=== PATIENT | male | born 1955 | race Asian ===

== ENCOUNTER 2017-05-27 10:04 | Inpatient (IN) | payer OTHER ==
[~2017-05-27 10:04] MED LIST: ASPIRIN COATED 81 MG TABLET.EC PO ONE
--- NOTE | 2017-05-27 10:17 | PDOC ---
Attending Attestation - Medical Decision Making 05/27/17 11:36 Dr. Hargrove, neurologist, was paged via phone answering service requesting a call back for doctor to doctor consult. 05/27/17 12:04 Dr. Hargrove returned the call and the patient's case was discussed. 05/27/17 12:05 Dr. Xavier Lee was paged via phone answering service requesting a call back for doctor to doctor consult. 05/27/17 12:30 Dr. Xavier Lee was called a 2nd time via phone answering service and the patient's case was discussed. He requests admission to Dr. Haq 05/27/17 12:33 Dr. Haq was paged via phone answering service requesting a call back for doctor to doctor consult regarding patient admission. 05/27/17 12:35 Dr. Haq returned the call and the patient's case was discussed. Dr. Haq accepts this patient's admission. <Brinda Asif - Last Filed: 05/27/17 12:35> - Resident Resident Name: Boaz Gardner - ED Attending Attestation I have performed the following: I have examined & evaluated the patient, The case was reviewed & discussed with the resident, I agree w/resident's findings & plan, Exceptions are as noted - HPI HPI: 05/27/17 10:17 61-year-old male with a history of untreated hypertension and active smoking presents with right upper and lower extremity weakness since 1 AM last night. Daughter also notes he was having difficulty signing the ambulance paperwork and that he has some slurred speech. He has never had similar symptoms in the past. Denies any headaches. Reports - Physicial Exam PE: 05/27/17 10:17 GENERAL: Awake, alert, and fully oriented, in no acute distress HEAD: No signs of trauma EYES: PERRLA, EOMI, sclera anicteric, conjunctiva clear ENT: Auricles normal inspection, hearing grossly normal, nares patent, oropharynx clear without exudates. Moist mucosa NECK: Normal ROM, supple, no lymphadenopathy, JVD, or masses LUNGS: Breath sounds equal, clear to auscultation bilaterally. No wheezes, and no crackles HEART: Regular rate and rhythm, normal S1 and S2, no murmurs, rubs or gallops ABDOMEN: Soft, nontender, normoactive bowel sounds. No guarding, no rebound. No masses EXTREMITIES: Normal range of motion, no edema. No clubbing or cyanosis. No cords, erythema, or tenderness NEUROLOGICAL: slightly slurred speech, cranial nerves intact, +R sided pronator drift, 5/5 strength in all 4 extremities, normal sensation to light touch in all 4 extremities, normal cerebellar exam, normal reflexes and tone, visual jack full, gait deferred SKIN: Warm, Dry, normal turgor, no rashes or lesions noted. - Medical Decision Making 05/27/17 10:58 61-year-old male with a history of hypertension and smoking presents with right- sided weakness associated with slurred speech. Exam with slurred speech and right-sided pronator drift. Patient also reports difficulty walking earlier today due to right lower extremity weakness which he says has improved. NIH stroke scale of 2. Patient is out of the stroke window with last known normal at 1 AM last night. Likely CVA - ischemic or hemorrhagic versus TIA. -labs -CTH -MRI if CT negative -neuro c/s -admit 05/27/17 11:28 CTH negative for acute stroke. Aspirin and lipitor ordered, neuro c/s, MRI triple study ordered as well. Family made aware of findings and plan. 05/27/17 11:[address] Hargrove (neuro) who will see pt. Carotid doppler ordered. Dr. Lee paged for admission, awaiting call back. 05/27/17 12:[address] Haq <Mervin Kohler - Last Filed: 05/27/17 12:56>
[2017-05-27] MEDS ORDERED: SODIUM CHLORIDE 1,000 ML IV SCH (10:30)
[2017-05-27 10:37] LABS: BASOPHIL 0.5 % (0-2.0); EOSINOPHIL 4.1 % (0-4.5); MCH 29.1 pg (25.7-33.7); MCHC 32.8 g/dl (32.0-35.9); MEAN CELL VOLUME 88.7 fl (80-96); NEUTROPHILS 50.7 % (42.8-82.8); PLATELET COUNT 159 K/MM3 (134-434); RDW 13.6 % (11.9-15.9); WHITE BLOOD COUNT 7.2 K/mm3 (4.0-10.0)
--- NOTE | 2017-05-27 10:44 | PDOC ---
History of Present Illness - General Chief Complaint: CVA/TIA Stated Complaint: RT SIDE NUMBNESS Time Seen by Provider: 05/27/17 10:16 History Source: Patient, Family Exam Limitations: No Limitations - History of Present Illness Initial Comments: 05/27/17 10:35 The patient is a 61M with untreated HTN and tobacco abuse who presents with R upper and lower extremity weakness. The weakness and tingling started at 1am today. He was also complaining of dizziness and an unsteady gait. The dizziness is described as the room spinning. He felt so weak this morning that he was unable to walk to the bathroom and needed assistance. The patient does not take any of his BP meds. NIH Stroke Scale - Last Known Well Date/Time & Onset Date Last Known Well: 05/27/17 Time Last Known Well: 01:00 - Initial Evaluation Level of consciousness: Alert Ask patient the month and their age: Answers both correctly Ask patient to open & close eyes; make fist and let go: Obeys both correctly Best gaze (horizontal eye movement): Normal Visual field testing: No visual field loss Facial paresis (Show teeth/raise eyebrows/close eyes tight): Normal symmetrical movement Motor Function: Left Arm: Normal Motor Function: Right Arm: Drift Motor Function: Left Leg: Normal (extends leg 30 degrees for 5 seconds without drift) Motor Function: Right Leg: Normal (extends leg 30 degrees for 5 seconds without drift) Limb Ataxia: No ataxia Sensory(Use pinprick test arms,legs,trunk,face/side to side): Normal Best language (Describe picture, name items, read sentences): No Aphasia Dysarthria (read several words): Mild to moderate slurring of words Extinction and Inattention: No abnormality - Total Score NIH Stroke Scale Score: 2 Past History - Past Medical History Allergies/Adverse Reactions: Allergies Allergy/AdvReac Type Severity Reaction Status Date / Time No Known Allergies Allergy Verified 05/27/17 10:12 Home Medications: Ambulatory Orders Ibuprofen [Motrin -] 800 mg PO TID #30 tablet 06/16/15 HTN: Yes (NON COMPLIANT WITH MEDS.) - Surgical History Abdominal Surgery: Yes (HERNIA) - Psycho/Social/Smoking Cessation Hx Anxiety: No Suicidal Ideation: No Smoking History: Current every day smoker Have you smoked in the past 12 months: Yes Number of Cigarettes Smoked Daily: 20 Information on smoking cessation initiated: Yes 'Breaking Loose' booklet given: 05/27/17 Hx Alcohol Use: Yes (WEEKLY) Drug/Substance Use Hx: No Substance Use Type: None Review of Systems - Review of Systems Able to Perform ROS?: Yes Is the patient limited Kyrgyz proficient: No Constitutional: No: Chills, Fever HEENTM: Yes: Blurred Vision (secondary to irritant sprayed in eye) Respiratory: No: Cough, Shortness of Breath Cardiac (ROS): No: Chest Pain ABD/GI: No: Nausea, Vomiting Neurological: Yes: Tingling, Weakness. No: Headache, Numbness *Physical Exam - Vital Signs Last Vital Signs Temp Pulse Resp BP Pulse Ox 97.8 F 66 20 202/106 98 05/27/17 10:09 05/27/17 10:09 05/27/17 10:09 05/27/17 10:09 05/27/17 10:09 - Physical Exam General Appearance: Yes: Nourished, Appropriately Dressed. No: Apparent Distress, Moderate Distress HEENT: positive: Normal Voice, Hearing Grossly Normal Respiratory/Chest: positive: Lungs Clear, Normal Breath Sounds. negative: Chest Tender, Respiratory Distress, Accessory Muscle Use Cardiovascular: positive: Regular Rhythm, Regular Rate, S1, S2. negative: Diastolic Murmur, Systolic Murmur Gastrointestinal/Abdominal: positive: Flat. negative: Tender, Protuberent, Distended, Guarding, Rebound, Tenderness Extremity: negative: Coldness, Swelling, Calf Tenderness Integumentary: positive: Dry, Warm. negative: Cold, Clammy, Diaphoresis Neurologic: positive: winder hand II-XII NML intact, Fully Oriented, Alert, Normal Mood/ Affect, Normal Response, Motor Strength 5/5, Responsive, Finger to Nose (intact) , Other (Speech mildly slurly). negative: Abnormal Cranial NS, Respond to painful stimul, EOM Palsy, Facial Droop, Numbness, Sensory Deficit, Confused, Disoriented, Depressed Affect ED Treatment Course - LABORATORY CBC & Chemistry Diagram: 05/27/17 10:29 05/27/17 10:29 Medical Decision Making - Medical Decision Making 05/27/17 10:56 The patient is a 61M with a PMH of untreated HTN and smoking who presents with a questionable stroke/CVA. The patient is outside the treatment window for TPA, but imaging and labs have been ordered. The patient is hypertensive 194/106. 05/27/17 12:[address] Haq and he agreed for admission for CVA vs TIA. He wants consults for Dr. Houser and Beena for cardio and neuro. Orders have been placed. *DC/Admit/Observation/Transfer Diagnosis at time of Disposition: Cerebrovascular accident (CVA) Qualifiers: CVA mechanism: unspecified Qualified Code(s): I63.9 - Cerebral infarction, unspecified - Discharge Dispostion Condition at time of disposition: Stable Admit: Yes - Referrals Referrals: Xavier Lee [Primary Care Provider] -
[2017-05-27 10:58] LABS: ALBUMIN 3.9 g/dl (3.4-5.0); ANION GAP 6 (8-16); CHOLESTEROL 192 mg/dL (50-200); CO2 27 mmol/L (21-32); CREATININE 0.8 mg/dL (0.7-1.3); GLUCOSE,RANDOM 129 mg/dL (74-106); LDL CHOLESTEROL (ONLY SJRH) 117 mg/dL (5-100); SGOT/AST 19 U/L (15-37); SGPT/ALT 22 U/L (12-78); TOT PROT 7.4 g/dl (6.4-8.2)
[2017-05-27 10:59] LABS: ALK PHOS 82 U/L (45-117); CPK 179 IU/L (39-308); TROPONIN I < 0.02 ng/ml (0.00-0.05)
[2017-05-27 11:11] LABS: INR 0.99 (0.82-1.09); PROTHROMBIN TIME (PATIENT) 10.9 SEC (9.98-11.88)
[2017-05-27 11:13] LABS: ACTIVATED PTT 32.8 SECONDS (26.9-34.4)
[2017-05-27] MEDS ORDERED: ASPIRIN 325 MG ENTERIC COATED TABLET (FP) ONE (11:39)
[2017-05-27] MEDS ORDERED: ATORVASTATIN CA 80 MG TABLET (FP) PO ONE (12:02)
--- NOTE | 2017-05-27 13:21 | CONSULT ---
Consult - text type - Consultation Consultation Note: Neurology 61-year-old male with a history of untreated hypertension and active smoking presents with right upper and lower extremity weakness since 1 AM night prior to admission. Reportedly, his daughter noted he was having difficulty signing the ambulance paperwork and that he has some slurred speech. He has never had similar symptoms in the past. Was brought to ER and I spoke to attending, CT head done and negative, recommended ASA 325mg, Aspirin niave at home. Statin started Not in TPA window and therefore not a candidate for thrombolysis. CD completed and no evidence of high grade stenosis. Symptoms reportedly episodic and could TIA if re-circulation with effective collaterals occur. Past History - Past Medical History Allergies/Adverse Reactions: Allergies Allergy/AdvReac Type Severity Reaction Status Date / Time No Known Allergies Allergy Verified 05/27/17 10:12 Home Medications: Ambulatory Orders Ibuprofen [Motrin -] 800 mg PO TID #30 tablet 06/16/15 HTN: Yes (NON COMPLIANT WITH MEDS.) - Surgical History Abdominal Surgery: Yes (HERNIA) - Psycho/Social/Smoking Cessation Hx Anxiety: No Suicidal Ideation: No Smoking History: Current every day smoker Have you smoked in the past 12 months: Yes Number of Cigarettes Smoked Daily: 20 Information on smoking cessation initiated: Yes 'Breaking Loose' booklet given: 05/27/17 Hx Alcohol Use: Yes (WEEKLY) Drug/Substance Use Hx: No Substance Use Type: None Review of Systems - Review of Systems Able to Perform ROS?: Yes Is the patient limited Trinidadian proficient: No Constitutional: No: Chills, Fever HEENTM: Yes: Blurred Vision (secondary to irritant sprayed in eye) Respiratory: No: Cough, Shortness of Breath Cardiac (ROS): No: Chest Pain ABD/GI: No: Nausea, Vomiting Neurological: Yes: Tingling, Weakness. No: Headache, Numbness Active Medications Sodium Chloride (Normal Saline -) 1,000 mls @ 42 mls/hr IV [facility] Last Admin: 05/27/17 11:04 Dose: Not Given - Physicial Exam GENERAL: Awake, alert, and fully oriented, in no acute distress HEAD: No signs of trauma EYES: PERRLA, EOMI, sclera anicteric, conjunctiva clear ENT: Auricles normal inspection, hearing grossly normal, nares patent, oropharynx clear without exudates. Moist mucosa NECK: Normal ROM, supple, no lymphadenopathy, JVD, or masses LUNGS: Breath sounds equal, clear to auscultation bilaterally. No wheezes, and no crackles HEART: Regular rate and rhythm, normal S1 and S2, no murmurs, rubs or gallops ABDOMEN: Soft, nontender, normoactive bowel sounds. No guarding, no rebound. No masses EXTREMITIES: Normal range of motion, no edema. No clubbing or cyanosis. No cords, erythema, or tenderness NEUROLOGICAL: slightly slurred speech, cranial nerves intact, +R sided pronator drift, 5/5 strength in all 4 extremities, normal sensation to light touch in all 4 extremities, normal cerebellar exam, normal reflexes and tone, visual jack full, gait deferred SKIN: Warm, Dry, normal turgor, no rashes or lesions noted. CBCD WBC 7.2 K/mm3 (4.0-10.0) 05/27/17 10:29 RBC 5.33 M/mm3 (4.00-5.60) 05/27/17 10:29 Hgb 15.5 GM/dL (11.7-16.9) 05/27/17 10:29 Hct 47.3 % (35.4-49) 05/27/17 10:29 MCV 88.7 fl (80-96) 05/27/17 10:29 MCHC 32.8 g/dl (32.0-35.9) 05/27/17 10:29 RDW 13.6 % (11.9-15.9) 05/27/17 10:29 Plt Count 159 K/MM3 (134-434) 05/27/17 10:29 MPV 11.0 fl (7.5-11.1) 05/27/17 10:29 CMP Sodium 138 mmol/L (136-145) 05/27/17 10:29 Potassium 3.9 mmol/L (3.5-5.1) 05/27/17 10:29 Chloride 105 mmol/L (98-107) 05/27/17 10:29 Carbon Dioxide 27 mmol/L (21-32) 05/27/17 10:29 Anion Gap 6 (8-16) L 05/27/17 10:29 BUN 13 mg/dL (7-18) 05/27/17 10:29 Creatinine 0.8 mg/dL (0.7-1.3) 05/27/17 10:29 Creat Clearance w eGFR > 60 (>60) 05/27/17 10:29 Calcium 9.0 mg/dL (8.5-10.1) 05/27/17 10:29 Total Bilirubin 1.0 mg/dL (0.2-1.0) 05/27/17 10:29 AST 19 U/L (15-37) 05/27/17 10:29 ALT 22 U/L (12-78) 05/27/17 10:29 Alkaline Phosphatase 82 U/L (45-117) 05/27/17 10:29 Total Protein 7.4 g/dl (6.4-8.2) 05/27/17 10: Albumin 3.9 g/dl (3.4-5.0) 05/27/17 10:29 CT head and CD reviewed in detail. - Medical Decision Making 61-year-old male with a history of untreated hypertension and active smoking presents with right upper and lower extremity weakness since 1 AM night prior to admission. Reportedly, his daughter noted he was having difficulty signing the ambulance paperwork and that he has some slurred speech. He has never had similar symptoms in the past. Was brought to ER and I spoke to attending, CT head done and negative, recommended ASA 325mg, Aspirin niave at home. Statin started Not in TPA window and therefore not a candidate for thrombolysis. CD completed and no evidence of high grade stenosis. Symptoms reportedly episodic and could TIA if re-circulation with effective collaterals occur MRI brain Start ASA 81mg, Statin 40mg Echo Lipid profile Speech/swallow eval Physical therapy Tobacco cessation recommended BP control, range 140-160 for now, < 140 as outpatient
[2017-05-27] MEDS ORDERED: ATORVASTATIN CA 80 MG TABLET (FP) ONE (14:06)
[2017-05-27] MEDS ORDERED: ACETAMINOPHEN 325 MG TABLET (FP) PO PRN (15:53)
[2017-05-27 15:56] VITALS: BMI 22.8
--- NOTE | 2017-05-27 16:12 | CON.CARD ---
Consult Consult Specialty:: Cardiology - History of Present Illness Chief Complaint: Right sided weakness History of Present Illness: This is a 61 year old male with a PMH of HTN and smoking. He was at a wedding and didn't eat for most of the day. He then ate very quickly and experienced dizziness and lightheadedness accompanied by right upper and lower extremity weakness which resolved. No chest pain of SOB. EKG showed NSR with normal intervals and normal axis. - Alcohol/Substance Use Hx Alcohol Use: Yes (WEEKLY-LAST X4 DAYS) - Smoking History Smoking history: Current every day smoker Have you smoked in the past 12 months: Yes Aproximately how many cigarettes per day: 20 Home Medications - Allergies Allergies/Adverse Reactions: Allergies Allergy/AdvReac Type Severity Reaction Status Date / Time No Known Allergies Allergy Verified 05/27/17 10:12 - Home Medications Home Medications: Ambulatory Orders NK [No Known Home Medication] 05/27/17 Review of Systems Unable to obtain ROS, reason: As per HPI Vital Signs: Vital Signs Temperature 97.8 F 05/27/17 10:09 Pulse Rate 66 05/27/17 15:10 Respiratory Rate 18 05/27/17 15:10 Blood Pressure 187/115 05/27/17 15:10 O2 Sat by Pulse Oximetry (%) 98 05/27/17 15:10 Constitutional: Yes: No Distress Neck: Yes: WNL Respiratory: Yes: CTA Bilaterally Gastrointestinal: Yes: Soft Cardiovascular: Yes: Regular Rate and Rhythm Heart Sounds: Yes: S1, S2 (No MRHG) Extremities: Yes: WNL Neurological: Yes: Alert, Oriented (Grossly non focal) Psychiatric: Yes: WNL - Other Data Labs, Other Data: INR, PTT INR 0.99 (0.82-1.09) 05/27/17 10:29 Assessment/Plan Transient dizziness and right sided weakness Now resolved No evidence for atrial fibrillation BP is elevated and he will likely need a BP med, would start with a Ca++ channel sherie like amlodipine 5 mg po daily Will follow with you
[2017-05-27 16:56] LABS: URINE APPEARANCE CLEAR; URINE BILIRUBIN NEGATIVE (NEGATIVE); URINE BLOOD NEGATIVE (NEGATIVE); URINE COLOR LTYELLOW; URINE GLUCOSE (UA) NEGATIVE (NEGATIVE); URINE KETONE NEGATIVE (NEGATIVE); URINE LEUK ESTERASE NEGATIVE (NEGATIVE); URINE NITRITE NEGATIVE (NEGATIVE); URINE PROTEIN NEGATIVE (NEGATIVE); URINE UROBILINOGEN NEGATIVE mg/dL (0.2-1.0)
--- NOTE | 2017-05-27 19:39 | EKG ---
Test Reason : Blood Pressure : / mmHG Vent. Rate : 068 BPM Atrial Rate : 068 BPM P-R Int : 140 ms QRS Dur : 088 ms QT Int : 384 ms P-R-T Axes : 057 067 101 degrees QTc Int : 408 ms NORMAL SINUS RHYTHM POSSIBLE LEFT ATRIAL ENLARGEMENT T WAVE ABNORMALITY, CONSIDER ANTEROLATERAL ISCHEMIA ABNORMAL ECG NO PREVIOUS ECGS AVAILABLE Confirmed by LLOYD CRYSTAL MD ([id number]) on 05/27/2017 7:39:16 PM Referred By: Confirmed By:LLOYD CRYSTAL MD
[2017-05-27] MEDS: ATORVASTATIN CA 40 MG TABLET (FP) PO SCH (21:53)
[2017-05-28 07:22] LABS: MCH 29.4 pg (25.7-33.7); MCHC 33.2 g/dl (32.0-35.9); MEAN CELL VOLUME 88.5 fl (80-96); MEAN PLT VOLUME 11.3 fl (7.5-11.1); PLATELET COUNT 151 K/MM3 (134-434); RDW 13.5 % (11.9-15.9); WHITE BLOOD COUNT 6.5 K/mm3 (4.0-10.0)
[2017-05-28 07:45] LABS: ALBUMIN 3.5 g/dl (3.4-5.0); ANION GAP 8 (8-16); CALCIUM 8.5 mg/dL (8.5-10.1); CO2 27 mmol/L (21-32); CREATININE 0.8 mg/dL (0.7-1.3); GLUCOSE,RANDOM 81 mg/dL (74-106); SGOT/AST 14 U/L (15-37); SGPT/ALT 20 U/L (12-78)
[2017-05-28 07:47] LABS: ALK PHOS 72 U/L (45-117); BILIRUBIN,TOTAL 1.2 mg/dL (0.2-1.0); TOT PROT 6.6 g/dl (6.4-8.2)
[2017-05-28] MEDS: amLODIPine BESYLATE 5 MG TABLET (FP) PO SCH (09:09)
[2017-05-28] MEDS: ASPIRIN COATED 81 MG TABLET.EC PO SCH (09:09)
--- NOTE | 2017-05-28 09:54 | PN ---
Progress Note (short form) - Note Progress Note: Neurology 61-year-old male with a history of untreated hypertension and active smoking presents with right upper and lower extremity weakness since 1 AM night prior to admission. Reportedly, his daughter noted he was having difficulty signing the ambulance paperwork and that he has some slurred speech. He has never had similar symptoms in the past. Was brought to ER and I spoke to attending, CT head done and negative, recommended ASA 325mg, Aspirin niave at home. Statin started Not in TPA window and therefore not a candidate for thrombolysis. CD completed and no evidence of high grade stenosis. Symptoms reportedly episodic and MRI completed and showed acute L basal ganglia infarct. Also small L internal capsule infarct also acute. Patient had not been taking his anti-HTN medication and based on size and location, most likely HTN CVA. Discussed in detail importance of taking medication (both Anti-HTN and Statin). ASA 81mg has been added and I encourage him to continue taking. Cardiology on the case and rec'd Amlodipine. 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 Discussed diet habits and medication compliance with him despite his physically active lifestyle. Active Medications Acetaminophen (Tylenol -) 650 mg PO Q6H PRN PRN Reason: FEVER OR PAIN Amlodipine Besylate (Norvasc -) 5 mg PO DAILY [facility] Last Admin: 05/28/17 09:09 Dose: 5 mg Aspirin (Ecotrin -) 81 mg PO DAILY [facility] Last Admin: 05/28/17 09:09 Dose: 81 mg Atorvastatin Calcium (Lipitor -) 40 mg PO HS [facility] Last Admin: 05/27/17 21:53 Dose: 40 mg Vital Signs Temperature 98 F 05/28/17 09:00 Pulse Rate 68 05/28/17 09:00 Respiratory Rate 18 05/28/17 09:00 Blood Pressure 168/100 05/28/17 09:00 O2 Sat by Pulse Oximetry (%) 98 05/27/17 20:52 - Physicial Exam GENERAL: Awake, alert, and fully oriented, in no acute distress HEAD: No signs of trauma EYES: PERRLA, EOMI, sclera anicteric, conjunctiva clear ENT: Auricles normal inspection, hearing grossly normal, nares patent, oropharynx clear without exudates. Moist mucosa NECK: Normal ROM, supple, no lymphadenopathy, JVD, or masses LUNGS: Breath sounds equal, clear to auscultation bilaterally. No wheezes, and no crackles HEART: Regular rate and rhythm, normal S1 and S2, no murmurs, rubs or gallops ABDOMEN: Soft, nontender, normoactive bowel sounds. No guarding, no rebound. No masses EXTREMITIES: Normal range of motion, no edema. No clubbing or cyanosis. No cords, erythema, or tenderness NEUROLOGICAL: slightly slurred speech, cranial nerves intact, +R sided pronator drift, 5/5 strength in all 4 extremities, normal sensation to light touch in all 4 extremities, normal cerebellar exam, normal reflexes and tone, visual jack full, gait deferred SKIN: Warm, Dry, normal turgor, no rashes or lesions noted. CBCD WBC 6.5 K/mm3 (4.0-10.0) 05/28/17 05:35 RBC 5.15 M/mm3 (4.00-5.60) 05/28/17 05:35 Hgb 15.1 GM/dL (11.7-16.9) 05/28/17 05:35 Hct 45.6 % (35.4-49) 05/28/17 05:35 MCV 88.5 fl (80-96) 05/28/17 05:35 MCHC 33.2 g/dl (32.0-35.9) 05/28/17 05:35 RDW 13.5 % (11.9-15.9) 05/28/17 05:35 Plt Count 151 K/MM3 (134-434) 05/28/17 05:35 MPV 11.3 fl (7.5-11.1) H 05/28/17 05:35 CMP Sodium 140 mmol/L (136-145) 05/28/17 05:35 Potassium 4.1 mmol/L (3.5-5.1) 05/28/17 05:35 Chloride 105 mmol/L (98-107) 05/28/17 05:35 Carbon Dioxide 27 mmol/L (21-32) 05/28/17 05:35 Anion Gap 8 (8-16) 05/28/17 05:35 BUN 16 mg/dL (7-18) D 05/28/17 05:35 Creatinine 0.8 mg/dL (0.7-1.3) 05/28/17 05:35 Creat Clearance w eGFR > 60 (>60) 05/28/17 05:35 Calcium 8.5 mg/dL (8.5-10.1) 05/28/17 05:35 Total Bilirubin 1.2 mg/dL (0.2-1.0) H 05/28/17 05:35 AST 14 U/L (15-37) L D 05/28/17 05:35 ALT 20 U/L (12-78) 05/28/17 05:35 Alkaline Phosphatase 72 U/L (45-117) 05/28/17 05:35 Total Protein 6.6 g/dl (6.4-8.2) 05/28/17 05:35 Albumin 3.5 g/dl (3.4-5.0) 05/28/17 05:35 CT head and CD reviewed in detail. MRI brain, MRA reviewed - Medical Decision Making 61-year-old male with a history of untreated hypertension and active smoking presents with right upper and lower extremity weakness since 1 AM night prior to admission. Reportedly, his daughter noted he was having difficulty signing the ambulance paperwork and that he has some slurred speech. He has never had similar symptoms in the past. Not in TPA window and therefore not a candidate for thrombolysis. CD completed and no evidence of high grade stenosis. MRI brain showed acute L BG and internal capsule CVA Medication noncompliance major issue and extensive conversation with patient and son at bedside Started ASA 81mg, Statin 40mg and must be continued, LDL goal is <70 in CVA Echo recommended Follow up Cardiology rec'd Tobacco cessation recommended BP control, range 140-160 for now, < 140 as outpatient DVT ppx, patient ambulating Diet modifications discussed
[2017-05-28] MEDS ORDERED: ASPIRIN COATED 81 MG TABLET.EC PO ONE (10:00)
--- NOTE | 2017-05-28 14:46 | PN ---
Progress Note, Physician Chief Complaint: No symptoms today Tele unremarkable History of Present Illness: This is a 61 year old male with a PMH of HTN and smoking. He was at a wedding and didn't eat for most of the day. He then ate very quickly and experienced dizziness and lightheadedness accompanied by right upper and lower extremity weakness which resolved. No chest pain of SOB. EKG showed NSR with normal intervals and normal axis. MRI: small acute left basal ganglia infarct - Current Medication List Current Medications: Active Medications Acetaminophen (Tylenol -) 650 mg PO Q6H PRN PRN Reason: FEVER OR PAIN Amlodipine Besylate (Norvasc -) 5 mg PO DAILY [facility] Last Admin: 05/28/17 09:09 Dose: 5 mg Aspirin (Ecotrin -) 81 mg PO DAILY [facility] Last Admin: 05/28/17 09:09 Dose: 81 mg Atorvastatin Calcium (Lipitor -) 40 mg PO HS [facility] Last Admin: 05/27/17 21:53 Dose: 40 mg - Objective Vital Signs: Vital Signs Temperature 97.9 F 05/28/17 13:52 Pulse Rate 68 05/28/17 13:52 Respiratory Rate 18 05/28/17 09:00 Blood Pressure 165/96 05/28/17 13:52 O2 Sat by Pulse Oximetry (%) 98 05/28/17 09:00 Constitutional: Yes: No Distress Cardiovascular: Yes: Regular Rate and Rhythm, S1, S2. No: JVD, Murmur Respiratory: Yes: CTA Bilaterally Gastrointestinal: Yes: WNL Edema: No Labs: CBC, BMP 05/28/17 05:35 05/28/17 05:35 INR, PTT INR 0.99 (0.82-1.09) 05/27/17 10:29 Problem List - Problems (1) Cerebrovascular accident (CVA) Code(s): I63.9 - CEREBRAL INFARCTION, UNSPECIFIED Qualifiers: CVA mechanism: unspecified Qualified Code(s): I63.9 - Cerebral infarction, unspecified Assessment/Plan This is a 61 year old male with a PMH of HTN and smoking. He was at a wedding and didn't eat for most of the day. He then ate very quickly and experienced dizziness and lightheadedness accompanied by right upper and lower extremity weakness which resolved. No chest pain of SOB. EKG showed NSR with normal intervals and normal axis and lateral T wave abnormalities 1) CVA -found to have acute L basal ganglia infarct No carotid stenosis Possibly related to uncontrolled htn. Started on amlodipine 5mg. Monitor and if still elevated increase to 10mg tomorrow. Continue aspirin/statin Tele unremarkable. Consider usp event monitor as outpatient. Echocardiogram is pending
--- NOTE | 2017-05-28 17:00 | HP ---
Admitting History and Physical - Primary Care Physician PCP: Shaun Haq - Admission Chief Complaint: CVA/WEAKNESS History of Present Illness: 61 YEAR OLD MALE WITH SUDDEN SLURRED SPEECH AND WEAKNESS CAME TO ER TO R/O CVA. HISTORY OF HTN, SMOKING. History Source: Patient, Family Member, Medical Record - Past Medical History Cardiovascular: Yes: HTN - Smoking History Smoking history: Current every day smoker Have you smoked in the past 12 months: Yes Aproximately how many cigarettes per day: 20 - Alcohol/Substance Use Hx Alcohol Use: Yes (WEEKLY-LAST X4 DAYS) Home Medications - Allergies Allergies/Adverse Reactions: Allergies Allergy/AdvReac Type Severity Reaction Status Date / Time No Known Allergies Allergy Verified 05/27/17 10:12 - Home Medications Home Medications: Ambulatory Orders NK [No Known Home Medication] 05/27/17 Review of Systems - Review of Systems Constitutional: reports: No Symptoms Eyes: reports: No Symptoms HENT: reports: No Symptoms Neck: reports: No Symptoms Cardiovascular: reports: No Symptoms Respiratory: reports: No Symptoms Gastrointestinal: reports: No Symptoms Genitourinary: reports: No Symptoms Musculoskeletal: reports: No Symptoms Integumentary: reports: No Symptoms Neurological: reports: No Symptoms Endocrine: reports: No Symptoms Hematology/Lymphatic: reports: No Symptoms Psychiatric: reports: No Symptoms Physical Examination Vital Signs: Vital Signs Temperature 97.9 F 05/28/17 13:52 Pulse Rate 68 05/28/17 13:52 Respiratory Rate 18 05/28/17 09:00 Blood Pressure 165/96 05/28/17 13:52 O2 Sat by Pulse Oximetry (%) 98 05/28/17 09:00 Findings/Remarks: IN BED FAMILY BEDSIDE, NO COMPLAINTS Constitutional: Yes: No Distress Eyes: Yes: WNL HENT: Yes: WNL Neck: Yes: WNL Cardiovascular: Yes: WNL Respiratory: Yes: WNL Renal/: Yes: WNL Musculoskeletal: Yes: WNL Extremities: Yes: WNL Edema: No Peripheral Pulses WNL: Yes Integumentary: Yes: WNL Wound/Incision: Yes: Clean/Dry Neurological: Yes: WNL ...Motor Strength: WNL Psychiatric: Yes: WNL Labs: CBC, BMP 05/28/17 05:35 05/28/17 05:35 Imaging - Results MRI: Report Reviewed Problem List - Problems (1) Cerebrovascular accident (CVA) Code(s): I63.9 - CEREBRAL INFARCTION, UNSPECIFIED Qualifiers: CVA mechanism: unspecified Qualified Code(s): I63.9 - Cerebral infarction, unspecified Assessment/Plan NEUROLOGY AND CARDIOLOGY EVAL SMOKING CESSATION HTN CONTROL CARDIO WORKUP STATIN/ASA
[2017-05-28] MEDS: ATORVASTATIN CA 40 MG TABLET (FP) PO SCH (21:56)
[2017-05-29] MEDS: amLODIPine BESYLATE 5 MG TABLET (FP) PO SCH (09:08)
[2017-05-29] MEDS: ASPIRIN COATED 81 MG TABLET.EC PO SCH (09:08)
--- NOTE | 2017-05-29 10:16 | PN ---
Progress Note (short form) - Note Progress Note: Neurology 61-year-old male with a history of untreated hypertension and active smoking presents with right upper and lower extremity weakness since 1 AM night prior to admission. Reportedly, his daughter noted he was having difficulty signing the ambulance paperwork and that he has some slurred speech. He has never had similar symptoms in the past. Was brought to ER and I spoke to attending, CT head done and negative, recommended ASA 325mg, Aspirin niave at home. Statin started Not in TPA window and therefore not a candidate for thrombolysis. CD completed and no evidence of high grade stenosis. Symptoms reportedly episodic and MRI completed and showed acute L basal ganglia infarct. Also small L internal capsule infarct also acute. Patient had not been taking his anti-HTN medication and based on size and location, most likely HTN CVA. Again discussed in detail importance of taking medication (both Anti-HTN and Statin). ASA 81mg has been added and I encourage him to continue taking. Cardiology on the case and rec'd Amlodipine. 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 Discussed diet habits and medication compliance with him despite his physically active lifestyle. Echo reviewed and with normal LV function, normal systolic function. Bp elevated to 180's/100's this morning and patient asymptomatic. Active Medications Acetaminophen (Tylenol -) 650 mg PO Q6H PRN PRN Reason: FEVER OR PAIN Amlodipine Besylate (Norvasc -) 5 mg PO DAILY [facility] Last Admin: 05/29/17 09:08 Dose: 5 mg Aspirin (Ecotrin -) 81 mg PO DAILY [facility] Last Admin: 05/29/17 09:08 Dose: 81 mg Atorvastatin Calcium (Lipitor -) 40 mg PO HS [facility] Last Admin: 05/28/17 21:56 Dose: 40 mg Last Vital Signs Temp Pulse Resp BP Pulse Ox 98 F 64 18 184/100 98 05/29/17 09:28 05/29/17 09:28 05/29/17 09:28 05/29/17 09:28 05/28/17 20:09 - Physicial Exam GENERAL: Awake, alert, and fully oriented, in no acute distress HEAD: No signs of trauma EYES: PERRLA, EOMI, sclera anicteric, conjunctiva clear ENT: Auricles normal inspection, hearing grossly normal, nares patent, oropharynx clear without exudates. Moist mucosa NECK: Normal ROM, supple, no lymphadenopathy, JVD, or masses LUNGS: Breath sounds equal, clear to auscultation bilaterally. No wheezes, and no crackles HEART: Regular rate and rhythm, normal S1 and S2, no murmurs, rubs or gallops ABDOMEN: Soft, nontender, normoactive bowel sounds. No guarding, no rebound. No masses EXTREMITIES: Normal range of motion, no edema. No clubbing or cyanosis. No cords, erythema, or tenderness NEUROLOGICAL: slightly slurred speech, cranial nerves intact, +R sided pronator drift, 5/5 strength in all 4 extremities, normal sensation to light touch in all 4 extremities, normal cerebellar exam, normal reflexes and tone, visual jack full, gait deferred SKIN: Warm, Dry, normal turgor, no rashes or lesions noted. CBCD WBC 6.5 K/mm3 (4.0-10.0) 05/28/17 05:35 RBC 5.15 M/mm3 (4.00-5.60) 05/28/17 05:35 Hgb 15.1 GM/dL (11.7-16.9) 05/28/17 05:35 Hct 45.6 % (35.4-49) 05/28/17 05:35 MCV 88.5 fl (80-96) 05/28/17 05:35 MCHC 33.2 g/dl (32.0-35.9) 05/28/17 05:35 RDW 13.5 % (11.9-15.9) 05/28/17 05:35 Plt Count 151 K/MM3 (134-434) 05/28/17 05:35 MPV 11.3 fl (7.5-11.1) H 05/28/17 05:35 CMP Sodium 140 mmol/L (136-145) 05/28/17 05:35 Potassium 4.1 mmol/L (3.5-5.1) 05/28/17 05:35 Chloride 105 mmol/L (98-107) 05/28/17 05:35 Carbon Dioxide 27 mmol/L (21-32) 05/28/17 05:35 Anion Gap 8 (8-16) 05/28/17 05:35 BUN 16 mg/dL (7-18) D 05/28/17 05:35 Creatinine 0.8 mg/dL (0.7-1.3) 05/28/17 05:35 Creat Clearance w eGFR > 60 (>60) 05/28/17 05:35 Calcium 8.5 mg/dL (8.5-10.1) 05/28/17 05:35 Total Bilirubin 1.2 mg/dL (0.2-1.0) H 05/28/17 05:35 AST 14 U/L (15-37) L D 05/28/17 05:35 ALT 20 U/L (12-78) 05/28/17 05:35 Alkaline Phosphatase 72 U/L (45-117) 05/28/17 05:35 Total Protein 6.6 g/dl (6.4-8.2) 05/28/17 05:35 Albumin 3.5 g/dl (3.4-5.0) 05/28/17 05:35 CT head and CD reviewed in detail. MRI brain, MRA reviewed Echo reviewed - Medical Decision Making 61-year-old male with a history of untreated hypertension and active smoking presents with right upper and lower extremity weakness since 1 AM night prior to admission. Reportedly, his daughter noted he was having difficulty signing the ambulance paperwork and that he has some slurred speech. He has never had similar symptoms in the past. Not in TPA window and therefore not a candidate for thrombolysis. CD completed and no evidence of high grade stenosis. MRI brain showed acute L BG and internal capsule CVA Medication noncompliance major issue and extensive conversation with patient and son at bedside Started ASA 81mg, Statin 40mg and must be continued, LDL goal is <70 in CVA Echo reviewed Follow up Cardiology rec'd Tobacco cessation recommended BP control, range 140-160 for now, < 140 as outpatient DVT ppx, patient ambulating Diet modifications discussed Outpatient follow up discussed
[2017-05-29] MEDS ORDERED: NEBIVOLOL 10 MG TABLET (FP) PO SCH (12:15)
[2017-05-29 13:45] VITALS: BP 171/91; PULSE 68; TEMP 98.2
--- NOTE | 2017-05-29 13:50 | PN ---
Progress Note, Physician Chief Complaint: No symptoms today Tele unremarkable History of Present Illness: This is a 61 year old male with a PMH of HTN and smoking. He was at a wedding and didn't eat for most of the day. He then ate very quickly and experienced dizziness and lightheadedness accompanied by right upper and lower extremity weakness which resolved. No chest pain of SOB. EKG showed NSR with normal intervals and normal axis. MRI: small acute left basal ganglia infarct - Current Medication List Current Medications: Active Medications Acetaminophen (Tylenol -) 650 mg PO Q6H PRN PRN Reason: FEVER OR PAIN Amlodipine Besylate (Norvasc -) 5 mg PO DAILY [facility] Last Admin: 05/29/17 09:08 Dose: 5 mg Aspirin (Ecotrin -) 81 mg PO DAILY [facility] Last Admin: 05/29/17 09:08 Dose: 81 mg Atorvastatin Calcium (Lipitor -) 40 mg PO HS [facility] Last Admin: 05/28/17 21:56 Dose: 40 mg Nebivolol (Bystolic -) 10 mg PO DAILY [facility] Last Admin: 05/29/17 12:12 Dose: 10 mg - Objective Vital Signs: Vital Signs Temperature 98.2 F 05/29/17 13:44 Pulse Rate 68 05/29/17 13:44 Respiratory Rate 20 05/29/17 13:44 Blood Pressure 171/91 05/29/17 13:44 O2 Sat by Pulse Oximetry (%) 100 05/29/17 09:00 Constitutional: Yes: No Distress Neck: Yes: WNL Cardiovascular: Yes: Regular Rate and Rhythm, S1, S2. No: JVD, Murmur Respiratory: Yes: CTA Bilaterally Gastrointestinal: Yes: WNL Edema: No Labs: CBC, BMP 05/28/17 05:35 05/28/17 05:35 INR, PTT INR 0.99 (0.82-1.09) 05/27/17 10:29 Problem List - Problems (1) Cerebrovascular accident (CVA) Code(s): I63.9 - CEREBRAL INFARCTION, UNSPECIFIED Qualifiers: CVA mechanism: unspecified Qualified Code(s): I63.9 - Cerebral infarction, unspecified Assessment/Plan This is a 61 year old male with a PMH of HTN and smoking. He was at a wedding and didn't eat for most of the day. He then ate very quickly and experienced dizziness and lightheadedness accompanied by right upper and lower extremity weakness which resolved. No chest pain of SOB. EKG showed NSR with normal intervals and normal axis and lateral T wave abnormalities 1) CVA -found to have acute L basal ganglia infarct No carotid stenosis Echocardiogram with normal LVEF and mild MR/TR/AR, mild LVH Tele unremarkable. Consider usp event monitor as outpatient. Monitor BP and if needed would increase amlodipine to 10mg. If bp still elevated after this than would start monalisa-i
--- NOTE | 2017-05-29 14:36 | DS ---
Physical Examination Vital Signs: Vital Signs Temperature 98.2 F 05/29/17 13:44 Pulse Rate 68 05/29/17 13:44 Respiratory Rate 20 05/29/17 13:44 Blood Pressure 171/91 05/29/17 13:44 O2 Sat by Pulse Oximetry (%) 100 05/29/17 09:00 Findings/Remarks: AWAKE ALERT FEELS GOOD BP 142/88MMHG LEFT ARM Constitutional: Yes: Well Nourished Eyes: Yes: WNL HENT: Yes: WNL Neck: Yes: WNL Cardiovascular: Yes: WNL Respiratory: Yes: WNL Gastrointestinal: Yes: WNL Renal/: Yes: WNL Musculoskeletal: Yes: WNL Extremities: Yes: WNL Edema: No Peripheral Pulses WNL: Yes Integumentary: Yes: WNL Wound/Incision: Yes: Clean/Dry Neurological: Yes: WNL ...Motor Strength: WNL Psychiatric: Yes: WNL Labs: CBC, BMP 05/28/17 05:35 05/28/17 05:35 Discharge Summary Reason For Visit: CEREBROVASCULAR ACCIDENT(CVA) Current Active Problems Cerebrovascular accident (CVA) (Acute) Procedures: Principal: MRI/MRA Other Procedures: CT, LABS Hospital Course: ADMITTED CVA, NEURO EVAL AND CARDIO EVAL, LDL GOAL LESS THAN 70, BP MONITORED BY PMD Condition: Stable - Instructions Diet, Activity, Other Instructions: LOW SALR/LOW FAT SEE DR LEE TOMORROW AM 11AM Referrals: Xavier Lee [Primary Care Provider] - Disposition: HOME - Home Medications Comprehensive Discharge Medication List: Ambulatory Orders NK [No Known Home Medication] 05/27/17
== END 2017-05-29 15:09 | disposition home or self-care (01) | DRG 45 ==
LOC: JER 10:04 → JERBED 12:37 → J4W 15:55
PROVIDERS: ADMIT Family Medicine; ATTEND Family Medicine
DX: I63.9 Cerebral infarction, unspecified (principal); R29.702 NIHSS score 2; I10 Essential (primary) hypertension; F17.210 Nicotine dependence, cigarettes, uncomplicated; Z91.14 Patient's other noncompliance with medication regimen; I69.351 Hemiplegia and hemiparesis following cerebral infarction affecting right dominant side; I08.3 Combined rheumatic disorders of mitral, aortic and tricuspid valves
CPT/HCPCS: 36415; 70450-TC; 70544-TC; 70547-TC; 70551-TC; 71020-TC; 80053; 81003; 82465; 82553; 83036; 83718; 83721; 84443; 84478; 84484; 85025; 85027; 85610; 85730; 86850; 86900; 86901; 93005; 93010; 93306-TC; 93880-TC; 97116-GP; 97161-GP; 99285-25

== ENCOUNTER 2017-09-23 17:59 | Emergency (ER) | payer OTHER ==
[2017-09-23 18:24] VITALS: BP 140/87; PULSE 61; TEMP 97.8; BMI 22.8
--- NOTE | 2017-09-23 19:02 | PDOC ---
History of Present Illness - General Chief Complaint: Injury Stated Complaint: INJURY Time Seen by Provider: 09/23/17 18:29 - History of Present Illness Initial Comments: 09/23/17 18:45 CHIEF COMPLAINT: HISTORY OF PRESENT ILLNESS: 62 yo M with hx of HTN presents to [facility] with swollen third finger. Patient reports he was cleaning crabs a few days ago when he cut his finger. Since then the finger has become more swollen and painful. PAST MEDICAL HISTORY: HTN FAMILY HISTORY: Denies SOCIAL HISTORY: Denies tobacco, alcohol, illicit drug use. ALLERGIES: No known drug allergies REVIEW OF SYSTEMS General/Constitutional: Denies fever or chills. Cardiovascular: Denies chest pain or shortness of breath. Respiratory: Denies cough, wheezing, or hemoptysis. Gastrointestinal: Denies nausea, vomiting, diarrhea. Musculoskeletal: Swelling and pain to R third finger. Skin: Denies rash. PHYSICAL EXAM General Appearance: Well-appearing, appropriately dressed. No apparent distress , no intoxication. HEENT: EOMI, PERRLA. No conjunctival pallor. No photophobia, scleral icterus. Respiratory/Chest: Lungs CTAB. Cardiovascular: RRR. S1, S2. Musculoskeletal/Extremities: Paronychia to third right finger with swelling and tenderness. Normal inspection. FROM of all extremities, normal capillary refill. Pelvis Stable. No CVA tenderness. No tenderness to extremities, pedal edema, swelling, erythema or deformity. Integumentary: Appropriate color, dry, warm. No cyanosis, erythema, jaundice or rash Neurologic: fabric cutter II-XII intact. Fully oriented, alert. Appropriate mood/affect. Motor strength 5/5. No appreciable EOM palsy, facial droop or sensory deficit. Past History - Past Medical History Allergies/Adverse Reactions: Allergies Allergy/AdvReac Type Severity Reaction Status Date / Time No Known Allergies Allergy Verified 09/23/17 18:18 Home Medications: Ambulatory Orders Acetaminophen [Tylenol .Regular Strength -] 650 mg PO Q6H PRN #0 tablet Amlodipine Besylate [Norvasc -] 10 mg PO DAILY #30 tablet 05/29/17 Aspirin Coated [Ecotrin -] 81 mg PO DAILY #30 tab NS 05/29/17 Atorvastatin Ca [Lipitor] 40 mg PO HS #30 tablet 05/29/17 Nebivolol [Bystolic -] 10 mg PO DAILY #30 tab 05/29/17 Cephalexin [Keflex] 500 mg PO TID #21 capsule 09/23/17 COPD: No HTN: Yes (NON COMPLIANT WITH MEDS.) - Surgical History Abdominal Surgery: Yes (HERNIA) - Suicide/Smoking/Psychosocial Hx Smoking History: Current every day smoker Have you smoked in the past 12 months: No Number of Cigarettes Smoked Daily: 8 Information on smoking cessation initiated: No 'Breaking Loose' booklet given: 05/27/17 Hx Alcohol Use: No Drug/Substance Use Hx: No Substance Use Type: None *Physical Exam - Vital Signs Last Vital Signs Temp Pulse Resp BP Pulse Ox 97.8 F 61 18 140/87 100 09/23/17 18:19 09/23/17 18:19 09/23/17 18:19 09/23/17 18:19 09/23/17 18:19 Procedures - Consent Consent obtained: Verbal - Incision and Drainage I&D Site: Right: Paronychia (3rd finger) Betadine cleansed: Yes Anesthesia: 1% Lidocaine Volume(ml): 4 Blade Size: 11 Attempts: 1 Dressing: Yes (telfa, tube gauze) Progress: 09/23/17 19:14 paronychia to R lateral aspect of 3rd right finger performed, small amount of pus expressed, wound culture sent. Patient tolerated well. Medical Decision Making - Medical Decision Making 09/23/17 19:02 62 yo M with hx of HTN [facility] with swollen [facility] finger. Paronychia I&D performed, wound culture sent. Keflex rx sent to pharm. *DC/Admit/Observation/Transfer Diagnosis at time of Disposition: Paronychia of finger of right hand - Discharge Dispostion Disposition: HOME Condition at time of disposition: Stable Admit: No - Prescriptions Prescriptions: Cephalexin [Keflex] 500 mg PO TID #21 capsule - Referrals Referrals: Xavier Lee [Primary Care Provider] - - Patient Instructions Printed Discharge Instructions: DI for Paronychia Additional Instructions: Continue soaking your finger 3-4 times daily in warm water to help drain out the infection. Take antibiotics as prescribed and complete the entire course of antibiotics. If you develop any fever, chills, nausea, vomiting, diarrhea, or the finger becomes increasingly painful, hot, swollen, or red, please return to the ER. - Post Discharge Activity
== END 2017-09-23 19:08 | disposition home or self-care (01) ==
LOC: JER 17:59 → JERFT 17:59
PROC: 0J9J0ZZ Drainage of Right Hand Subcutaneous Tissue and Fascia, Open Approach (ICD-10-PCS; principal; 2017-09-23)
DX: L03.011 Cellulitis of right finger (principal); I10 Essential (primary) hypertension; Z91.14 Patient's other noncompliance with medication regimen; F17.210 Nicotine dependence, cigarettes, uncomplicated
CPT/HCPCS: 87070; 87186; 87205; 99281-25

== ENCOUNTER 2017-10-02 20:30 | Emergency (ER) | payer OTHER ==
--- NOTE | 2017-10-02 20:33 | PDOC ---
Rapid Medical Evaluation Time Seen by Provider: 10/02/17 20:31 Medical Evaluation: Allergies Allergy/AdvReac Type Severity Reaction Status Date / Time No Known Allergies Allergy Verified 09/23/17 18:18 10/02/17 20:31 I have performed a brief in-person evaluation of this patient. The patient presents with a chief complaint of: Body aches w/ cough w/ rhinorrhea and fever x 4 days. H/o HTN, CVA w/ no focal deficits. Currently on keflex for paronychia Pertinent physical exam findings:Stable w/ unremarkable exam I have ordered the following: nothing The patient will proceed to the ED for further evaluation.
[2017-10-02 20:35] VITALS: BP 129/73; PULSE 70; TEMP 98.9; BMI 22.8
--- NOTE | 2017-10-02 22:40 | PDOC ---
History of Present Illness - General Chief Complaint: Cold Symptoms Stated Complaint: FEVER Time Seen by Provider: 10/02/17 20:31 History Source: Patient - History of Present Illness Initial Comments: 10/02/17 22:39 62 year old male with Complaining of nasal congestion, cough, chills, bodyaches for 4 days. Patient's daughter and grandson with similar symptoms. Denies getting flu shot this year. Patient history of hypertension, CVA. 10/02/17 22:52 Past History - Past Medical History Allergies/Adverse Reactions: Allergies Allergy/AdvReac Type Severity Reaction Status Date / Time No Known Allergies Allergy Verified 10/02/17 20:35 Home Medications: Ambulatory Orders Acetaminophen [Tylenol .Regular Strength -] 650 mg PO Q6H PRN #0 tablet Amlodipine Besylate [Norvasc -] 10 mg PO DAILY #30 tablet 05/29/17 Aspirin Coated [Ecotrin -] 81 mg PO DAILY #30 tab NS 05/29/17 Atorvastatin Ca [Lipitor] 40 mg PO HS #30 tablet 05/29/17 Nebivolol [Bystolic -] 10 mg PO DAILY #30 tab 05/29/17 Fluticasone Prop 0.05% Nasal [Flonase -] 1 - 2 spray NS BID #1 spray.pump COPD: No HTN: Yes (NON COMPLIANT WITH MEDS.) - Surgical History Abdominal Surgery: Yes (HERNIA) - Suicide/Smoking/Psychosocial Hx Smoking History: Current every day smoker Have you smoked in the past 12 months: Yes Number of Cigarettes Smoked Daily: 10 Information on smoking cessation initiated: No 'Breaking Loose' booklet given: 05/27/17 Hx Alcohol Use: No Drug/Substance Use Hx: No Substance Use Type: None Review of Systems - Review of Systems Able to Perform ROS?: Yes Is the patient limited Bulgarian proficient: No Constitutional: Yes: Chills HEENTM: Yes: Nose Congestion Respiratory: Yes: Cough *Physical Exam - Vital Signs Last Vital Signs Temp Pulse Resp BP Pulse Ox 98.9 F 70 18 129/73 100 10/02/17 20:32 10/02/17 20:32 10/02/17 20:32 10/02/17 20:32 10/02/17 20:32 - Physical Exam General Appearance: Yes: Appropriately Dressed HEENT: positive: Nasal Congestion Respiratory/Chest: positive: Lungs Clear, Normal Breath Sounds Cardiovascular: positive: Regular Rhythm, Regular Rate Gastrointestinal/Abdominal: positive: Normal Bowel Sounds, Soft Extremity: positive: Normal Capillary Refill, Normal Inspection, Normal Range of Motion Integumentary: positive: Normal Color, Dry, Warm Neurologic: positive: Fully Oriented, Alert, Normal Mood/Affect ED Treatment Course - RADIOLOGY Radiology Studies Ordered: Category Date Time Status CHEST PA & LAT [RAD] Stat Radiology 10/02/17 22:08 Ordered Chest X-Ray Result: No Infiltrates Progress Note - Progress Note Progress Note: A: viral syndrome; sinus congestion P: supportive care. Influenza negative *DC/Admit/Observation/Transfer Diagnosis at time of Disposition: Flu-like symptoms, Nasal congestion, Acute viral syndrome - Discharge Dispostion Disposition: HOME - Prescriptions Prescriptions: Fluticasone Prop 0.05% Nasal [Flonase -] 1 - 2 spray NS BID #1 spray.pump - Referrals Referrals: Xavier Lee [Primary Care Provider] - Call tomorrow - Patient Instructions Printed Discharge Instructions: DI for Common Cold Additional Instructions: drink plenty of fluids take tylenol every 6 hours as needed for fever. take flonase as prescribed for 3 days. follow up with your doctor as soon as possible. return to the ER if symptoms worsen. - Post Discharge Activity
--- NOTE | 2017-10-02 22:44 | PDOC ---
*Physical Exam - Vital Signs Last Vital Signs Temp Pulse Resp BP Pulse Ox 98.9 F 70 18 129/73 100 10/02/17 20:32 10/02/17 20:32 10/02/17 20:32 10/02/17 20:32 10/02/17 20:32 Medical Decision Making - Medical Decision Making 10/02/17 22:44 agree with care from [facility] *DC/Admit/Observation/Transfer Diagnosis at time of Disposition: Flu-like symptoms, Nasal congestion, Acute viral syndrome - Discharge Dispostion Disposition: HOME - Prescriptions Prescriptions: Fluticasone Prop 0.05% Nasal [Flonase -] 1 - 2 spray NS BID #1 spray.pump - Referrals Referrals: Xavier Lee [Primary Care Provider] - Call tomorrow - Patient Instructions Printed Discharge Instructions: DI for Common Cold Additional Instructions: drink plenty of fluids take tylenol every 6 hours as needed for fever. take flonase as prescribed for 3 days. follow up with your doctor as soon as possible. return to the ER if symptoms worsen. - Post Discharge Activity
== END 2017-10-02 23:42 | disposition home or self-care (01) ==
LOC: JER 20:30
DX: J11.1 Influenza due to unidentified influenza virus with other respiratory manifestations (principal); B97.89 Other viral agents as the cause of diseases classified elsewhere; I10 Essential (primary) hypertension; Z86.73 Personal history of transient ischemic attack (TIA), and cerebral infarction without residual deficits
CPT/HCPCS: 71046-TC; 87804; 99281-25

== ENCOUNTER 2018-07-03 08:53 | Day surgery (SDC) | payer OTHER ==
[2018-07-02 11:22] VITALS: BMI 22.8
[~2018-07-03 08:53] MED LIST changes: +ACETAMINOPHEN 325 MG TABLET (FP) PO PRN; -ASPIRIN COATED 81 MG TABLET.EC PO ONE; +BUPIVACAINE HCL/PF 0.75% 10 ML VIAL NR ONE; +CHONDROITIN SU A/HYALUR SOD 1 KIT IO ONE; +CYCLOPENTOLATE HCL 1% OPHTH SOLN 2 ML BOTTLE OP SCH; +EPINEPHrine/PF 1 MG/1 ML (1:1,000) AMPULE SQ ONE; +KETOROLAC TROMETHAMINE 0.5% EYE DROP 1 DROP DROPS OP SCH; +LIDOCAINE HCL 1% PRESERVATIVE FREE - 30ML VIAL IO ONE; +LIDOCAINE HCL/PF 2% SDV 5ML VIAL INF ONE; +OFLOXACIN 0.3% OPHTHALMIC SOLUTION 5 ML BOTTLE OP SCH; +PHENYLEPHRINE 2.5% OPHTH SOLN 15 ML BOTTLE OP SCH; +POVIDONE-IODINE 5% OPHTHALMIC PREP 30 ML SOLUTION OD ONE; +TROPICAMIDE 1% OPHTH SOLN 15 ML BOTTLE OP SCH
[2018-07-03] MEDS ORDERED: OFLOXACIN 0.3% OPHTHALMIC SOLUTION 5 ML BOTTLE ONE (09:02)
[2018-07-03] MEDS ORDERED: KETOROLAC TROMETHAMINE 0.5% EYE DROP 1 DROP DROPS ONE (09:02)
[2018-07-03] MEDS ORDERED: CYCLOPENTOLATE HCL 1% OPHTH SOLN 2 ML BOTTLE ONE (09:02)
[2018-07-03] MEDS ORDERED: PHENYLEPHRINE 2.5% OPHTH SOLN 15 ML BOTTLE ONE (09:02)
[2018-07-03] MEDS ORDERED: TROPICAMIDE 1% OPHTH SOLN 15 ML BOTTLE ONE (09:02)
[2018-07-03] MEDS ORDERED: OFLOXACIN 0.3% OPHTHALMIC SOLUTION 5 ML BOTTLE OD ONE ×3 (09:10→09:20)
[2018-07-03] MEDS ORDERED: CYCLOPENTOLATE HCL 1% OPHTH SOLN 2 ML BOTTLE OD ONE ×4 (09:10→09:20)
[2018-07-03] MEDS ORDERED: KETOROLAC TROMETHAMINE 0.5% EYE DROP 1 DROP DROPS OD ONE ×3 (09:10→09:20)
[2018-07-03] MEDS ORDERED: PHENYLEPHRINE 2.5% OPHTH SOLN 15 ML BOTTLE OD ONE ×3 (09:10→09:20)
[2018-07-03] MEDS ORDERED: TROPICAMIDE 1% OPHTH SOLN 15 ML BOTTLE OD ONE ×3 (09:10→09:20)
[2018-07-03 09:19] VITALS: TEMP 97.4
[2018-07-03] MEDS ORDERED: PROPOFOL 20 ML ONE (10:15)
[2018-07-03] MEDS ORDERED: MIDAZOLAM HCL 2 MG/2 ML SINGLE DOSE VIAL ONE (10:15)
[2018-07-03] MEDS ORDERED: LIDOCAINE HCL/PF 2% SDV 5ML VIAL INF ONE (10:21)
[2018-07-03] MEDS ORDERED: BUPIVACAINE HCL/PF 0.75% 10 ML VIAL NR ONE (10:21)
[2018-07-03] MEDS ORDERED: POVIDONE-IODINE 5% OPHTHALMIC PREP 30 ML SOLUTION OD ONE (10:23)
[2018-07-03] MEDS ORDERED: BSS (NA/CA/MG/K) BALANCED SALT SOLUTION OPHTH SOLN 15 ML BOTTLE OD ONE (10:33)
[2018-07-03] MEDS ORDERED: LIDOCAINE HCL 1% PRESERVATIVE FREE - 30ML VIAL IO ONE (10:33)
[2018-07-03] MEDS ORDERED: CHONDROITIN SU A/HYALUR SOD 1 KIT IO ONE (10:33)
[2018-07-03] MEDS ORDERED: EPINEPHrine/PF 1 MG/1 ML (1:1,000) AMPULE SQ ONE (10:40)
--- NOTE | 2018-07-03 11:11 | SPEC ---
DATE OF OPERATION: DATE OF DICTATION: 07/03/2018 PREOPERATIVE DIAGNOSIS: Cataract, right eye. POSTOPERATIVE DIAGNOSIS: Cataract, right eye. PROCEDURE: Phacoemulsification of right cataract with posterior chamber intraocular lens implantation, lens used [id number], 22.5-diopter power, serial number [id number]. SURGEON: Moncho Jacome MD ANESTHESIA: Peribulbar/modified Van Lint/MAC. COMPLICATIONS: None. PROCEDURE: The patient was brought to the operating room and correctly identified along with the operative site and correct intraocular lens power. The patient was then given a peribulbar block under sedation with 5 mL of a 1:1 mixture of 2% lidocaine and 0.5% bupivacaine. Two to 3 mL of the same mixture was given as a modified Van Lint block. The eye was then prepped and draped in the usual sterile fashion including 5% Betadine solution in the conjunctival sac and an eyelid drape. An eyelid speculum was then placed into the eye. A paracentesis port was created. Viscoelastic was injected to inflate the anterior chamber. A temporal clear corneal wound was created. A continuous circular capsulorrhexis was performed. The nucleus was then hydrodissected and removed phacoemulsification via the [id number] approach. The remaining cortical material was irrigated and aspirated from the eye. Viscoelastic was injected to inflate the capsular bag. The lens was injected into the capsular bag. Viscoelastic was then irrigated and aspirated from the eye. The intraocular lens was noted to be well centered and covered by the anterior capsular border. All wounds were found to be watertight. Topical vancomycin was given. The eye patch and shield were placed. The patient was discharged from the operating room in stable condition. MONCHO JACOME M.D. [id number]
[2018-07-03 11:13] VITALS: PULSE 50
[2018-07-03 12:04] VITALS: BP 115/64
== END 2018-07-03 12:08 | disposition home or self-care (01) ==
LOC: JASU-SURG 08:53
PROVIDERS: ATTEND Ophthalmology
PROC: 08RJ3JZ Replacement of Right Lens with Synthetic Substitute, Percutaneous Approach (ICD-10-PCS; principal; 2018-07-03 10:00)
DX: H26.9 Unspecified cataract (principal)

== ENCOUNTER 2019-05-16 18:29 | Emergency (ER) | payer OTHER ==
--- NOTE | 2019-05-16 18:50 | PDOC ---
Rapid Medical Evaluation Chief Complaint: Pain, Acute Time Seen by Provider: 05/16/19 18:48 Medical Evaluation: Allergies Allergy/AdvReac Type Severity Reaction Status Date / Time No Known Allergies Allergy Verified 10/02/17 20:35 05/16/19 18:49 I have performed a brief in-person evaluation of this patient. The patient presents with a chief complaint of: left knee pain x weeks, no treatment or meds. Pertinent physical exam findings: mild swelling , walks with limp I have ordered the following: Left Knee XraY The patient will proceed to the ED for further evaluation. Discharge Disposition - Diagnosis Knee pain - Referrals - Patient Instructions - Post Discharge Activity
[2019-05-16 18:51] VITALS: BP 155/90; PULSE 70; TEMP 98.2; BMI 22.8
--- NOTE | 2019-05-16 19:17 | PDOC ---
History of Present Illness - General Chief Complaint: Pain, Acute Stated Complaint: KNEE PAIN Time Seen by Provider: 05/16/19 18:48 History Source: Patient Exam Limitations: No Limitations Past History - Past Medical History Allergies/Adverse Reactions: Allergies Allergy/AdvReac Type Severity Reaction Status Date / Time No Known Allergies Allergy Verified 10/02/17 20:35 Home Medications: Ambulatory Orders Amlodipine Besylate [Norvasc -] 10 mg PO DAILY #30 tablet 05/29/17 Aspirin Coated [Ecotrin -] 81 mg PO DAILY #30 tab NS 05/29/17 Atorvastatin Ca [Lipitor] 40 mg PO HS #30 tablet 05/29/17 Nebivolol [Bystolic -] 10 mg PO DAILY #30 tab 05/29/17 Diclofenac Sodium [Voltaren] 4 gm TP Q6H #1 gel..gram. 05/16/19 CVA: Yes (no deficit) COPD: No Diabetes: Yes (no meds. normal levels now) HTN: Yes (NON COMPLIANT WITH MEDS.) Hypercholesterolemia: Yes - Surgical History Abdominal Surgery: Yes (HERNIA) - Immunization History Immunization Up to Date: Yes - Suicide/Smoking/Psychosocial Hx Smoking History: Current every day smoker Have you smoked in the past 12 months: No Number of Cigarettes Smoked Daily: 10 Information on smoking cessation initiated: No 'Breaking Loose' booklet given: 05/27/17 Hx Alcohol Use: No Drug/Substance Use Hx: No Substance Use Type: None *Physical Exam - Vital Signs Last Vital Signs Temp Pulse Resp BP Pulse Ox 98.2 F 70 17 155/90 99 05/16/19 18:49 05/16/19 18:49 05/16/19 18:49 05/16/19 18:49 05/16/19 18:49 - Physical Exam General Appearance: No: Apparent Distress Extremity: positive: Normal Inspection, Normal Range of Motion, Other (very minimal swelling along medial aspect of L knee, no deformity of knee, no tenderness on palpation along knee). negative: Calf Tenderness, Erythema Integumentary: positive: Normal Color. negative: Swelling, Ecchymosis, Bruising Neurologic: positive: Alert, Normal Mood/Affect, Motor Strength 5/5, Other ( normal gait ) Medical Decision Making - Medical Decision Making 63 y/o M hx of HTN, HLD, CVA (no residual deficits) presents with atraumatic L knee pain for around 1 month. Feels pain mostly when getting up from sitting position. Has not tried taking anything for pain. Has not yet had it evaluated by his PCP yet. Denies fever, sob, cp, abd pain, vomiting, hip pain, trauma. Normal gait here, normal ROM of L knee Possible mild arthritis L knee xray pending 05/16/19 19:18 L knee xray unremarkable L knee monalisa-wrapped for comfort 05/16/19 19:26 *DC/Admit/Observation/Transfer Diagnosis at time of Disposition: Knee pain Qualifiers: Chronicity: acute Laterality: left Qualified Code(s): M25.562 - Pain in left knee - Discharge Dispostion Disposition: HOME Condition at time of disposition: Stable Decision to Admit order: No - Prescriptions Prescriptions: Diclofenac Sodium [Voltaren] 4 gm TP Q6H #1 gel..gram. - Referrals - Patient Instructions Printed Discharge Instructions: DI for Knee Pain Additional Instructions: Thank you for choosing [facility]. It was a pleasure taking care of you. Use monalisa-wrap for comfort Apply the Voltaren gel as indicated Follow-up with your doctor in 2 days Return to the Emergency Department if your symptoms worsen or persist or have other concerning symptoms. - Post Discharge Activity
== END 2019-05-16 19:45 | disposition home or self-care (01) ==
LOC: JERFT 18:29
DX: M25.562 Pain in left knee (principal); I10 Essential (primary) hypertension; E78.5 Hyperlipidemia, unspecified; Z86.73 Personal history of transient ischemic attack (TIA), and cerebral infarction without residual deficits; F17.210 Nicotine dependence, cigarettes, uncomplicated
CPT/HCPCS: 73562-TC-LT-FY; 99282-25

== ENCOUNTER 2019-12-04 18:16 | Emergency (ER) | payer OTHER ==
[2019-12-04 18:22] VITALS: BMI 24.2
--- NOTE | 2019-12-04 18:22 | PDOC ---
Rapid Medical Evaluation Time Seen by Provider: 12/04/19 18:18 Medical Evaluation: Allergies Allergy/AdvReac Type Severity Reaction Status Date / Time No Known Allergies Allergy Verified 10/02/17 20:35 12/04/19 18:18 I have performed a brief in-person evaluation of this patient. The patient presents with a chief complaint of: hx of HTN chest pain x 2 days, SOB at rest Pertinent physical exam findings: lungs CTAB, hypertensive 190s/110s I have ordered the following: card workup The patient will proceed to the ED for further evaluation. Discharge Disposition - Diagnosis Chest pain - Referrals - Patient Instructions - Post Discharge Activity
[2019-12-04 18:53] LABS: BASO % 0.8 % (0-2.0); EOS % 2.1 % (0-4.5); HEMATOCRIT 44.9 % (35.4-49); HEMOGLOBIN 15.1 GM/dL (11.7-16.9); LYMPH % 31.8 % (8-40); MCH 30.1 pg (25.7-33.7); MCHC 33.6 g/dl (32.0-35.9); MEAN CELL VOLUME 89.5 fl (80-96); MONO % 9.3 % (3.8-10.2); RBC 5.01 M/mm3 (4.00-5.60); RDW 13.3 % (11.9-15.9); WHITE BLOOD COUNT 9.9 K/mm3 (4.0-10.0)
[2019-12-04] MEDS ORDERED: SODIUM CHLORIDE 1,687 ML IV ONE (18:55)
[2019-12-04] MEDS ORDERED: ACETAMINOPHEN 1000 MG/100 ML VIAL (NON FORMULARY) IVPB ONE (18:56)
[2019-12-04] MEDS ORDERED: NEBIVOLOL 10 MG TABLET (FP) PO ONE (19:10)
--- NOTE | 2019-12-04 19:10 | PDOC ---
History of Present Illness - General Chief Complaint: Pain, Acute Stated Complaint: CHEST PAIN Time Seen by Provider: 12/04/19 18:18 Past History - Past Medical History Allergies/Adverse Reactions: Allergies Allergy/AdvReac Type Severity Reaction Status Date / Time No Known Allergies Allergy Verified 10/02/17 20:35 Home Medications: Ambulatory Orders Amlodipine Besylate [Norvasc -] 10 mg PO DAILY #30 tablet 05/29/17 Aspirin Coated [Ecotrin -] 81 mg PO DAILY #30 tab NS 05/29/17 Atorvastatin Ca [Lipitor] 40 mg PO HS #30 tablet 05/29/17 Nebivolol [Bystolic -] 10 mg PO DAILY #30 tab 05/29/17 Diclofenac Sodium [Voltaren] 4 gm TP Q6H #1 gel..gram. 05/16/19 CVA: Yes (no deficit) COPD: No Diabetes: Yes (no meds. normal levels now) HTN: Yes (NON COMPLIANT WITH MEDS.) Hypercholesterolemia: Yes - Surgical History Abdominal Surgery: Yes (HERNIA) - Immunization History Immunization Up to Date: Yes - Psycho Social/Smoking Cessation Hx Smoking History: Current every day smoker Have you smoked in the past 12 months: Yes Number of Cigarettes Smoked Daily: 10 Information on smoking cessation initiated: No 'Breaking Loose' booklet given: 05/27/17 Hx Alcohol Use: No Drug/Substance Use Hx: No Substance Use Type: None *Physical Exam - Vital Signs Last Vital Signs Temp Pulse Resp BP Pulse Ox 98.4 F 87 16 194/98 H 99 12/04/19 18:19 12/04/19 18:19 12/04/19 18:19 12/04/19 18:19 12/04/19 18:19 ED Treatment Course - LABORATORY CBC & Chemistry Diagram: 12/04/19 18:29 12/04/19 18:29 - RADIOLOGY Radiology Studies Ordered: Category Date Time Status CHEST X-RAY PORTABLE* [RAD] Stat Radiology 12/04/19 18:55 Ordered Discharge - Discharge Information Clinical Impression/Diagnosis: Chest pain Condition: Stable - Follow up/Referral - Patient Discharge Instructions - Post Discharge Activity
[2019-12-04] MEDS ORDERED: amLODIPine BESYLATE 10 MG TABLET (FP) PO ONE (19:11)
--- NOTE | 2019-12-04 19:12 | PDOC ---
History of Present Illness - General Chief Complaint: Pain, Acute Stated Complaint: CHEST PAIN Time Seen by Provider: 12/04/19 18:18 History Source: Patient Exam Limitations: No Limitations - History of Present Illness Initial Comments: Brenton Barajas is a 64 yo M w a hx of CVA, HTN not compliant with meds and tobacco use presents to the [facility] er with 2 days of right and left chest pain and abdominal pain, myalgias, a dry non-productive cough, and subjective fevers. The patient took tylenol last night for his fever but has not taken any anti- pyretics today. His daughter who is a [facility] RN upstairs states he is not compliant with his medications. The patient states he also has a mild headache and feels like he has been short of breath for the past 2 days. The chest pain t hat the patient has is sharp in nature and not described as heavy or pressure like feeling. The chest pain does not radiate and it is not worsened with physical activity. CP is also not associated with diaphoresis, nausea, or vomiting. Denies recent travel outside of [place]. Denies nausea, vomiting, diarrhea, constipation, numbness, tingling, chills, or blurry vision. PCP: Xavier Lee PSH: Abdominal hernia surgery Social Hx: Smokes cigarettes and frequently drinks alcohol Allergies: NKA, NKDA Past History - Past Medical History Allergies/Adverse Reactions: Allergies Allergy/AdvReac Type Severity Reaction Status Date / Time No Known Allergies Allergy Verified 10/02/17 20:35 Home Medications: Ambulatory Orders Amlodipine Besylate [Norvasc -] 10 mg PO DAILY #30 tablet 05/29/17 Aspirin Coated [Ecotrin -] 81 mg PO DAILY #30 tab NS 05/29/17 Atorvastatin Ca [Lipitor] 40 mg PO HS #30 tablet 05/29/17 Nebivolol [Bystolic -] 10 mg PO DAILY #30 tab 05/29/17 Diclofenac Sodium [Voltaren] 4 gm TP Q6H #1 gel..gram. 05/16/19 Amlodipine Besylate [Norvasc -] 10 mg PO DAILY #7 tablet 12/04/19 Nebivolol HCl [Bystolic] 10 mg PO DAILY #7 tablet 12/04/19 CVA: Yes (no deficit) COPD: No Diabetes: Yes (no meds. normal levels now) HTN: Yes (NON COMPLIANT WITH MEDS.) Hypercholesterolemia: Yes - Surgical History Abdominal Surgery: Yes (HERNIA) - Immunization History Immunization Up to Date: Yes - Psycho Social/Smoking Cessation Hx Smoking History: Current every day smoker Have you smoked in the past 12 months: Yes Number of Cigarettes Smoked Daily: 10 Information on smoking cessation initiated: No 'Breaking Loose' booklet given: 05/27/17 Hx Alcohol Use: No Drug/Substance Use Hx: No Substance Use Type: None Review of Systems - Review of Systems Able to Perform ROS?: Yes Comments:: CONSTITUTIONAL: Present: Fever, chills, fatigue EYES: Absent: visual changes ENT: Absent: ear pain, no sore throat CARDIOVASCULAR: Present: b/l upper chest pain reproducible on palpation Absent: no palpitations RESPIRATORY: Present: Cough, SOB GI: Present: Abdominal pain Absent: no nausea, no vomiting, no constipation, no diarrhea GENITOURINARY: Absent: dysuria, no frequency, no hematuria MUSKULOSKELETAL: Present: Myalgia Absent: back pain, no arthralgia SKIN: Absent: rash NEURO: Present: headache *Physical Exam - Vital Signs Last Vital Signs Temp Pulse Resp BP Pulse Ox 98.4 F 87 16 194/98 H 99 12/04/19 18:19 12/04/19 18:19 12/04/19 18:19 12/04/19 18:19 12/04/19 18:19 - Physical Exam GENERAL: Well-appearing, well-nourished. No apparent distress. HEENT: Normocephalic, atraumatic. PERRL, EOM intact. CARDIOVASCULAR: Crescendo decrescendo systolic murmur in the right upper sternal region. Regular rate and rhythm. PULMONARY: Mild evidence of respiratory distress. Bi-basilar crackles. No wheezing or rhonchi. ABDOMEN: Soft, non-distended, non-tender. EXTREMITIES: Normal ROM in all four extremities. No gross deformities. SKIN: Warm, dry. No rash NEUROLOGICAL: No focal neurological deficits. ED Treatment Course - LABORATORY CBC & Chemistry Diagram: 12/04/19 18:29 12/04/19 18:29 - RADIOLOGY Radiology Studies Ordered: Category Date Time Status CHEST X-RAY PORTABLE* [RAD] Stat Radiology 12/04/19 18:55 Ordered Medical Decision Making - Medical Decision Making Brenton Barajas is a 64 yo M w a hx of CVA, HTN not compliant with meds and tobacco use presents to the [facility] er with 2 days of right and left chest pain and abdominal pain, myalgias, a dry non-productive cough, and subjective fevers. The patient took tylenol last night for his fever but has not taken any anti- pyretics today. His daughter who is a [facility] RN upstairs states he is not compliant with his medications. The patient states he also has a mild headache and feels like he has been short of breath for the past 2 days. The chest pain that the patient has is sharp in nature and not described as heavy or pressure like feeling. The chest pain does not radiate and it is not worsened with physical activity. CP is also not associated with diaphoresis, nausea, or vomiting. Vital Signs Temp Pulse Resp BP Pulse Ox 98.4 F 87 16 194/98 H 99 12/04/19 18:19 12/04/19 18:19 12/04/19 18:19 12/04/19 18:19 12/04/19 18:19 Rectal Temp at Bedside: 100.9 - Febrile - Hypertension likely secondary to patient not taking his home meds. DDx IBNLT: Sepsis, PNA, UTI, ACS, arrythmia, influenza, hypertensive emergency/urgency/end organ damage, other viral syndrome, electrolyte/metabolic disturbance, anemia Plan: Labs, Urine, EKG, CXR, IV hydration, supportive care, flu swab, administer home HTN meds, anti-pyretics, supportive care, re-assess. EKG: NS rate of 73, narrow complexes, normal axis, Biatrial enlargement, 1 MM elevation in V1 (Unchanged from EKG in 05/27/2017), 0.[address] depressions in 1, 2, aVF (All present in 05/27/17), TWI's in 1, V5, V6 (Also all present in 05/27/17), Qtc 398, OK 112 Labs: Trop negative Flu swab: Negative Urine: Unremarkable re-assessment: Patient appears very well, walking around ER in no distress, smiling and interacting pleasantly with staff, eating and drinking at bedside. Patient reports his symptoms resolved after supportive treatments. Disposition:Home with PCP FU Discharge - Discharge Information Problems reviewed: Yes Clinical Impression/Diagnosis: Chest pain Qualifiers: Chest pain type: unspecified Qualified Code(s): R07.9 - Chest pain, unspecified Hypertension Qualifiers: Hypertension type: unspecified Qualified Code(s): I10 - Essential (primary) hypertension Condition: Stable Disposition: HOME - Admission No - Additional Discharge Information Prescriptions: Nebivolol HCl [Bystolic] 10 mg PO DAILY #7 tablet Amlodipine Besylate [Norvasc -] 10 mg PO DAILY #7 tablet - Follow up/Referral Referrals: Xavier Lee [Non Staff, Medical] - [facility] [place] [Provider Group] Jude Zhao MD [Staff Physician] - - Patient Discharge Instructions Patient Printed Discharge Instructions: Treatments for High Blood Pressure: More Than Just Taking a Pill, DI for Malignant Hypertension, Lifestyle Habits May Lower Risk of Hypertension in Women Additional Instructions: You came into the ER with high blood pressure and a fever. We believe you have a virus. Take tylenol as needed for fevers and discomfort. IT IS EXTREMELY IMPORTANT YOU SCHEDULE A FOLLOW UP APPOINTMENT WITH YOUR PRIMARY CARE DOCTOR THIS WEEK TO GET REFILLS FOR YOUR HYPERTENSION MEDICATIONS! HAVING HIGH BLOOD PRESSURE CAUSES STROKES, HEART ATTACKS, AND MUCH MORE IF NOT TAKEN CARE OF APPROPRIATELY. Come back to the ER immediately with any new or worsening concerns. Print Language: ICELANDIC - Post Discharge Activity Vital Signs - Vital Signs Vital signs refused: No Blood Pressure: 148/97 BP Location: Left Arm Blood Pressure position: Sitting
[2019-12-04] MEDS ORDERED: amLODIPine BESYLATE 5 MG TABLET (FP) ONE (19:34)
[2019-12-04] MEDS ORDERED: ACETAMINOPHEN INJECTION 100 ML IVPB ONE (19:35)
[2019-12-04 20:04] LABS: INR 1.02 (0.83-1.09)
[2019-12-04 20:07] LABS: ACTIVATED PTT 29.2 SECONDS (25.2-36.5)
[2019-12-04 20:14] LABS: URINE APPEARANCE CLEAR; URINE BILIRUBIN NEGATIVE (NEGATIVE); URINE COLOR YELLOW; URINE GLUCOSE (UA) NEGATIVE (NEGATIVE); URINE KETONE NEGATIVE (NEGATIVE); URINE LEUK ESTERASE NEGATIVE (NEGATIVE); URINE NITRITE NEGATIVE (NEGATIVE); URINE PROTEIN NEGATIVE (NEGATIVE); URINE UROBILINOGEN 0.2 mg/dL (0.2-1.0)
--- NOTE | 2019-12-04 20:15 | PDOC ---
*Physical Exam - Vital Signs Last Vital Signs Temp Pulse Resp BP Pulse Ox 98.4 F 87 16 194/98 H 99 12/04/19 18:19 12/04/19 18:19 12/04/19 18:19 12/04/19 18:19 12/04/19 18:19 ED Treatment Course - LABORATORY CBC & Chemistry Diagram: 12/04/19 18:29 12/04/19 18:29 - ADDITIONAL ORDERS Additional order review: Laboratory Results 12/04/19 19:10 PT with INR 12.00 INR 1.02 PTT (Actin FS) 29.2 12/04/19 18:29 RBC 5.01 MCV 89.5 MCHC 33.6 RDW 13.3 Neutrophils % 56.0 Lymphocytes % 31.8 Monocytes % 9.3 Eosinophils % 2.1 Basophils % 0.8 Medical Decision Making - Medical Decision Making 12/04/19 20:12 Patient seen as pre-attending with Dr. Ruby (PGY-2) and Dr. Barnes (Attending) 64 y/o male with a PMHx of CVA here with abdominal pain. Pain is sharp, co nstant, worse with physical activity. No nausea/vomiting, diarrhea/constipation. Tolerating PO intake Temperature 100.6, BP 194/98 Has not taken BP medications recently 12/04/19 21:13 Patient assessed at bedside Repeat BP 148/97 s/p Amlodipine (10 mg) and Bystolic (10 mg) Belly soft, not actively c/o abdominal pain at this time. Symptoms resolved. Well appearing. Reports he has not taken his blood pressure medications for 6 months because he felt better and notes that he only has 2-3 pills left of one of the medications Labs show no signs of end organ damage Cr 0.8, no proteinuria Fever, belly symptoms likely 2/2 viral etiology Will give 7 day supply of anti-hypertensives, strong patient counseling on importance of adherence to medication regimen especially in light of patient's prior CVA. Discharge - Discharge Information Problems reviewed: Yes Clinical Impression/Diagnosis: Chest pain Qualifiers: Chest pain type: unspecified Qualified Code(s): R07.9 - Chest pain, unspecified Hypertension Qualifiers: Hypertension type: unspecified Qualified Code(s): I10 - Essential (primary) hypertension Condition: Stable Disposition: HOME - Admission No - Additional Discharge Information Prescriptions: Nebivolol HCl [Bystolic] 10 mg PO DAILY #7 tablet Amlodipine Besylate [Norvasc -] 10 mg PO DAILY #7 tablet - Follow up/Referral Referrals: [facility] [place] [Provider Group] Jude Zhao MD [Staff Physician] - Xavier Lee [Non Staff, Medical] - - Patient Discharge Instructions Patient Printed Discharge Instructions: Treatments for High Blood Pressure: More Than Just Taking a Pill, DI for Malignant Hypertension, Lifestyle Habits May Lower Risk of Hypertension in Women Additional Instructions: You came into the ER with high blood pressure and a fever. We believe you have a virus. Take tylenol as needed for fevers and discomfort. IT IS EXTREMELY IMPORTANT YOU SCHEDULE A FOLLOW UP APPOINTMENT WITH YOUR PRIMARY CARE DOCTOR THIS WEEK TO GET REFILLS FOR YOUR HYPERTENSION MEDICATIONS! HAVING HIGH BLOOD PRESSURE CAUSES STROKES, HEART ATTACKS, AND MUCH MORE IF NOT TAKEN CARE OF APPROPRIATELY. Come back to the ER immediately with any new or worsening concerns. Print Language: IRISH - Post Discharge Activity
[2019-12-04 20:16] LABS: MEAN PLT VOLUME 10.5 fl (7.5-11.1); PLATELET COUNT 164 K/MM3 (134-434)
[2019-12-04 20:21] LABS: ALBUMIN 3.3 g/dl (3.4-5.0); ALK PHOS 87 U/L (45-117); ANION GAP 5 MMOL/L (8-16); BILIRUBIN,TOTAL 0.9 mg/dL (0.2-1); BLOOD UREA NITROGEN 13.9 mg/dL (7-18); CALCIUM 8.6 mg/dL (8.5-10.1); CHLORIDE 105 mmol/L (98-107); CO2 28 mmol/L (21-32); CREATININE 0.8 mg/dL (0.55-1.3); GLUCOSE,RANDOM 113 mg/dL (74-106); MAGNESIUM 2.5 mg/dL (1.8-2.4); POTASSIUM 3.8 mmol/L (3.5-5.1); SGOT/AST 17 U/L (15-37); SGPT/ALT 18 U/L (13-61); SODIUM 137 mmol/L (136-145); TOT PROT 7.1 g/dl (6.4-8.2)
[2019-12-04] MEDS ORDERED: MAG HYDROX/AL HYDROX/SIMETH 30 ML UNIT-DOSE CUP PO ONE (20:21)
[2019-12-04] MEDS ORDERED: MAG HYDROX/AL HYDROX/SIMETH 30 ML UNIT-DOSE CUP ONE (20:44)
--- NOTE | 2019-12-04 21:01 | PDOC ---
Attending Attestation - Resident Resident Name: Reymundo Oakes - ED Attending Attestation I have performed the following: I have examined & evaluated the patient, The case was reviewed & discussed with the resident, I agree w/resident's findings & plan, Exceptions are as noted - HPI HPI: 12/04/19 22:22 See resident HPI - Physicial Exam PE: 12/04/19 22:22 Agree with documented exam - Medical Decision Making 12/04/19 22:22 64M presenting with 2 days of myalgias, cough, subjective fevers, rectal here 100.9F, bilateral chest pain, abdominal pain, headache Triage BP is 190s/100s Likely infectious etiology, viral, will r/o end organ damage f/u labs symptomatic tx re-eval pt symptomatically improved, evidence of end organ damage dc home pcp f/u
[2019-12-04 21:53] VITALS: PULSE 67; TEMP 98
--- NOTE | 2019-12-05 11:18 | EKG ---
Test Reason : Blood Pressure : / mmHG Vent. Rate : 073 BPM Atrial Rate : 073 BPM P-R Int : 112 ms QRS Dur : 100 ms QT Int : 362 ms P-R-T Axes : 064 067 226 degrees QTc Int : 398 ms NORMAL SINUS RHYTHM BIATRIAL ENLARGEMENT ABNORMAL ECG WHEN COMPARED WITH ECG OF 27-MAY-2017 10:17, ST NOW DEPRESSED IN INFERIOR LEADS INVERTED T WAVES HAVE REPLACED NONSPECIFIC T WAVE ABNORMALITY IN INFERIOR LEADS Confirmed by ALIE BENAVIDES MD ([id number]) on 12/05/2019 11:17:54 AM Referred By: Confirmed By:ALIE BENAVIDES MD
[2019-12-05 12:55] VITALS: BP 148/97
== END 2019-12-04 21:52 | disposition home or self-care (01) ==
LOC: JER 18:16
PROC: 3E0337Z Introduction of Electrolytic and Water Balance Substance into Peripheral Vein, Percutaneous Approach (ICD-10-PCS; principal; 2019-12-04)
PROC: 3E033NZ Introduction of Analgesics, Hypnotics, Sedatives into Peripheral Vein, Percutaneous Approach (ICD-10-PCS; 2019-12-04)
DX: R07.9 Chest pain, unspecified (principal); I10 Essential (primary) hypertension; E78.00 Pure hypercholesterolemia, unspecified; E11.9 Type 2 diabetes mellitus without complications; Z86.73 Personal history of transient ischemic attack (TIA), and cerebral infarction without residual deficits
CPT/HCPCS: 36415; 71045-TC-FY; 80053; 81003; 82550; 83605; 83735; 84484; 85025; 85610; 85730; 87040; 87077; 87086; 87804; 93005; 93010; 96361; 96374; 99285-25; J0131; J7030

== ENCOUNTER 2022-04-14 14:55 | Emergency (ER) | payer OTHER ==
[2022-04-14 15:13] VITALS: BMI 21.2
[2022-04-14 16:46] LABS: BASO % 0.9 % (0-2.0); EOS % 1.9 % (0-4.5); HEMATOCRIT 14.4 % (35.4-49); LYMPH % 21.2 % (8-40); MCH 27.8 pg (25.7-33.7); MCHC 29.2 g/dl (32.0-35.9); MEAN CELL VOLUME 95.1 fl (80-96); MEAN PLT VOLUME 8.6 fl (7.5-11.1); MONO % 9.3 % (3.8-10.2); NEUT % 66.7 % (42.8-82.8); PLATELET COUNT 386 10^3/uL (134-434); RBC 1.52 M/mm3 (4.00-5.60); RDW 21.1 % (11.9-15.9); RETICULOCYTES 12.92 % (0.5-1.5); WHITE BLOOD COUNT 12.4 K/mm3 (4.0-10.0)
[2022-04-14 16:47] LABS: HEMOGLOBIN 4.2 GM/dL (11.7-16.9)
[2022-04-14 16:56] LABS: INR 1.09 (0.83-1.09); PROTHROMBIN TIME (PATIENT) 12.5 SEC (9.7-13.0)
[2022-04-14 16:59] LABS: ACTIVATED PTT 24.4 SECONDS (25.2-36.5)
[2022-04-14 17:20] LABS: ALBUMIN 2.4 g/dl (3.4-5.0); BLOOD UREA NITROGEN 23.7 mg/dL (7-18)
[2022-04-14 17:22] LABS: BILIRUBIN,DIRECT 0.1 mg/dL (0.0-0.2)
[2022-04-14 17:23] LABS: CREATININE 0.7 mg/dL (0.55-1.3)
[2022-04-14 17:24] LABS: TOT PROT 5.7 g/dl (6.4-8.2)
[2022-04-14 17:34] LABS: BILIRUBIN,TOTAL 0.4 mg/dL (0.2-1)
[2022-04-14 17:56] LABS: ANISOCYTOSIS 3+; MACROCYTOSIS 0; OVALOCYTE 1+; TARGET CELLS 2+
[2022-04-15 00:20] LABS: HEMATOCRIT 24.5 % (35.4-49); HEMOGLOBIN 7.7 GM/dL (11.7-16.9); MCH 28.6 pg (25.7-33.7); MCHC 31.4 g/dl (32.0-35.9); MEAN CELL VOLUME 91.1 fl (80-96); MEAN PLT VOLUME 8.6 fl (7.5-11.1); PLATELET COUNT 281 10^3/uL (134-434); RBC 2.69 M/mm3 (4.00-5.60); RDW 15.8 % (11.9-15.9); WHITE BLOOD COUNT 12.4 K/mm3 (4.0-10.0)
[2022-04-15 05:59] VITALS: BP 121/83; PULSE 90
[2022-04-15 06:25] VITALS: TEMP 98.1
== END 2022-04-15 06:40 | disposition short-term general hospital (02) ==
LOC: JER 14:55
DX: D64.9 Anemia, unspecified (principal); R06.00 Dyspnea, unspecified; R60.0 Localized edema; K92.2 Gastrointestinal hemorrhage, unspecified
CPT/HCPCS: 36415; 36430; 80053; 82248; 82607; 82728; 82746; 83615; 84484; 85025; 85045; 85610; 85730; 86850; 86900; 86901; 86922; 93005; 93010; 99291; C9803-CS; P9058; U0003; U0005